=== PATIENT | male | born 1945 | race African-American/Black ===

== ENCOUNTER 2020-05-10 21:36 | Inpatient (IN) ==
[2020-05-10] MEDS ORDERED: NS 0.9% 1000 ml BAG 1,000 ML IV ONE (21:49)
[2020-05-10 22:10] LABS: ABS Basophils 0.1 10^3/ul (0-0.2); ABS Eosinophils 0.1 10^3/ul (0-0.6); ABS Lymphocytes 2.3 10^3/ul (1.0-4.8); ABS Monocytes 0.9 10^3/ul (0-0.8); ABS Neutrophils 5.4 10^3/ul (1.5-7.7); Eosinophil % 1.2 %; Hematocrit 39 % (42-52); Hemoglobin 13.2 g/dL (14.0-18.0); Lymphocyte % 25.8 %; Mean Corpuscular HGB Conc 34 g/dL (31-36); Mean Corpuscular Hemoglobin 29 pg (27-31); Mean Corpuscular Volume 86 fL (80-94); Mean Platelet Volume 7.3 fL (7.4-10.4); Platelet Count 286 10^3/uL (150-450); Red Blood Count 4.52 10^6 /uL (4.18-5.48); Red Cell Distribution Width 14 % (10-15); White Blood Count 8.7 10^3/uL (3.5-10.8)
[2020-05-10 22:18] LABS: Activated Partial Thrombo Time 27.4 seconds (26.0-38.0); INR 1.36 (0.82-1.09)
[2020-05-10 22:21] LABS: ALT 35 U/L (7-52); AST 19 U/L (13-39); Albumin 3.8 g/dL (3.2-5.2); Albumin/Globulin Ratio 0.9 (1-3); Alkaline Phosphatase 55 U/L (34-104); Anion Gap 9 mmol/L (2-11); BUN/Creatinine Ratio 12.9 (8-20); Blood Urea Nitrogen 8 mg/dL (6-24); CO2 Carbon Dioxide 25 mmol/L (22-32); Calcium 8.7 mg/dL (8.6-10.3); Chloride 100 mmol/L (101-111); Cholesterol 132 mg/dL; EGFR African American 153.9 (>60); EGFR Non-African American 127.2 (>60); Globulin 4.2 g/dL (2-4); Glucose 122 mg/dL (70-100); HDL Cholesterol 39.6 mg/dL; LDL Cholesterol 82 mg/dL; Potassium 3.7 mmol/L (3.5-5.0); Sodium 134 mmol/L (135-145); Triglycerides 53 mg/dL
[2020-05-10 22:24] LABS: Troponin I 0.08 ng/mL (<0.03)
[2020-05-10] MEDS ORDERED: Iodixanol (CONTRAST) 320 MG/ML 100 ML SDV IV ONE (22:29)
[2020-05-10 22:55] LABS: Urine Appearance Clear; Urine Bilirubin Negative (Negative); Urine Blood Negative (Negative); Urine Color Yellow; Urine Glucose Negative (Negative); Urine Ketones Negative (Negative); Urine Nitrite Negative (Negative); Urine Protein Negative (Negative); Urine Urobilinogen Negative (Negative)
[2020-05-11 01:23] LABS: Magnesium 1.9 mg/dL (1.9-2.7)
[2020-05-11 01:41] LABS: TSH Ultra Thyroid Stim Horm 0.63 mcIU/mL (0.34-5.60)
[2020-05-11 01:53] LABS: Folate > 20.00 ng/mL (>3.99)
[2020-05-11 01:54] LABS: Vitamin B12 > 1450 pg/mL (180-914)
[2020-05-11 01:56] LABS: Anion Gap 6 mmol/L (2-11); BUN/Creatinine Ratio 10.4 (8-20); Blood Urea Nitrogen 7 mg/dL (6-24); CO2 Carbon Dioxide 28 mmol/L (22-32); Calcium 8.7 mg/dL (8.6-10.3); Chloride 102 mmol/L (101-111); EGFR African American 140.7 (>60); EGFR Non-African American 116.3 (>60); Glucose 97 mg/dL (70-100); Potassium 3.9 mmol/L (3.5-5.0); Sodium 136 mmol/L (135-145)
[2020-05-11 02:05] LABS: Troponin I 0.07 ng/mL (<0.03)
[2020-05-11] MEDS: Enoxaparin 40 MG/0.4 ML SYR SUBCUT SCH (02:54)
[2020-05-11 05:55] LABS: Troponin I 0.09 ng/mL (<0.03)
[2020-05-11 08:42] LABS: Troponin I 0.08 ng/mL (<0.03)
[2020-05-12] MEDS: Enoxaparin 40 MG/0.4 ML SYR SUBCUT SCH (03:22)
[2020-05-12 06:49] LABS: ABS Basophils 0.1 10^3/ul (0-0.2); ABS Eosinophils 0.1 10^3/ul (0-0.6); ABS Monocytes 0.8 10^3/ul (0-0.8); ABS Neutrophils 4.7 10^3/ul (1.5-7.7); Eosinophil % 1.7 %; Hematocrit 35 % (42-52); Hemoglobin 12.1 g/dL (14.0-18.0); Lymphocyte % 25.5 %; Mean Corpuscular HGB Conc 35 g/dL (31-36); Mean Corpuscular Hemoglobin 30 pg (27-31); Mean Corpuscular Volume 86 fL (80-94); Mean Platelet Volume 7.2 fL (7.4-10.4); Platelet Count 268 10^3/uL (150-450); Red Blood Count 4.08 10^6 /uL (4.18-5.48); Red Cell Distribution Width 14 % (10-15); White Blood Count 7.7 10^3/uL (3.5-10.8)
[2020-05-12 06:56] LABS: INR 1.33 (0.82-1.09)
[2020-05-12 07:13] LABS: BUN/Creatinine Ratio 11.3 (8-20); Calcium 8.9 mg/dL (8.6-10.3); EGFR African American 153.9 (>60); EGFR Non-African American 127.2 (>60); Potassium 3.6 mmol/L (3.5-5.0)
[2020-05-12] MEDS ORDERED: Aspirin EC 81 mg TAB.EC (enteric coated) PO SCH (09:00)
[2020-05-12] MEDS ORDERED: Midazolam 5 mg/5 ml VIAL 1 mg/ml 5 ml VIAL (5 mg) ONE (09:07)
[2020-05-12] MEDS ORDERED: Naloxone 0.4 mg VIAL 0.4 mg/ml 1 ml VIAL ONE (09:07)
[2020-05-12] MEDS ORDERED: fentaNYL 100 mcg/2 ml 50 MCG/ML VIAL ONE (09:07)
[2020-05-12] MEDS ORDERED: Flumazenil 0.5 mg/5 ml 0.1 MG/ML 5 ml VIAL ONE (09:07)
[2020-05-12 14:32] VITALS: BP 107/56
== END 2020-05-12 15:41 | disposition home or self-care (01) | DRG 65 ==
LOC: MEDTELE 21:36 → ED 21:36 → MEDTELE 05-11 02:35
PROVIDERS: ADMIT Internal Medicine; ATTEND Hospitalist

== ENCOUNTER 2020-06-02 12:53 | Inpatient (IN) ==
[2020-06-02 13:29] LABS: Urine Appearance Turbid; Urine Bilirubin Negative (Negative); Urine Blood Negative (Negative); Urine Color Amber; Urine Glucose Negative (Negative); Urine Ketones Trace (Negative); Urine Nitrite Negative (Negative); Urine Protein 1+(30 mg/dL) (Negative); Urine Urobilinogen Negative (Negative)
[2020-06-02 13:59] LABS: Urine Bacteria Absent (Absent); Urine Red Blood Cell Absent (Absent); Urine White Blood Cell Absent (Absent)
[2020-06-02 14:09] LABS: ABS Basophils 0.1 10^3/ul (0-0.2); ABS Lymphocytes 1.4 10^3/ul (1.0-4.8); ABS Monocytes 1.1 10^3/ul (0-0.8); ABS Neutrophils 8.5 10^3/ul (1.5-7.7); Eosinophil % 0.4 %; Hematocrit 38 % (42-52); Hemoglobin 12.8 g/dL (14.0-18.0); Lymphocyte % 12.4 %; Mean Corpuscular HGB Conc 34 g/dL (31-36); Mean Corpuscular Hemoglobin 28 pg (27-31); Mean Corpuscular Volume 84 fL (80-94); Mean Platelet Volume 7.9 fL (7.4-10.4); Platelet Count 374 10^3/uL (150-450); Red Blood Count 4.52 10^6 /uL (4.18-5.48); Red Cell Distribution Width 14 % (10-15); White Blood Count 11.2 10^3/uL (3.5-10.8)
[2020-06-02 14:22] LABS: ALT 90 U/L (7-52); Albumin 3.5 g/dL (3.2-5.2); Albumin/Globulin Ratio 0.7 (1-3); Alkaline Phosphatase 66 U/L (34-104); Blood Urea Nitrogen 11 mg/dL (6-24); CO2 Carbon Dioxide 25 mmol/L (22-32); Calcium 9.3 mg/dL (8.6-10.3); Chloride 100 mmol/L (101-111); Creatine Kinase 127 U/L (10-223); EGFR African American 156.8 (>60); EGFR Non-African American 129.6 (>60); Globulin 4.7 g/dL (2-4); Glucose 104 mg/dL (70-100); Sodium 136 mmol/L (135-145); Total Protein 8.2 g/dL (6.4-8.9)
[2020-06-02 14:25] LABS: Anion Gap 11 mmol/L (2-11); Troponin I 0.49 ng/mL (<0.03)
[2020-06-02 14:45] LABS: Acetaminophen < 15 mcg/mL; Alcohol, S < 10 mg/dL (<10)
[2020-06-02 14:56] LABS: TSH Ultra Thyroid Stim Horm 1.36 mcIU/mL (0.34-5.60)
[2020-06-02] MEDS: NS 0.9% 1000 ml BAG 1,000 ML IV SCH ×2 (15:57→21:12)
[2020-06-02 16:25] LABS: INR 2.61 (0.82-1.09)
[2020-06-02] MEDS ORDERED: Ondansetron 4 mg VIAL 2 MG/ML 2 ml VIAL IV PRN (16:31)
[2020-06-02 16:44] LABS: Magnesium 1.8 mg/dL (1.9-2.7); Potassium Redraw 3.8 mmol/L (3.5-5.0)
[2020-06-03] MEDS: NS 0.9% 1000 ml BAG 1,000 ML IV SCH ×2 (05:24→18:09)
[2020-06-03] MEDS: Aspirin EC 81 mg TAB.EC (enteric coated) PO SCH (10:00)
[2020-06-03] MEDS: Warfarin DAILY REMINDER **NOTE FOLLOW UP SCH (18:09)
[2020-06-03] MEDS: Enoxaparin 60 MG/0.6 ML SYR SUBCUT SCH (20:25)
[2020-06-03 21:46] LABS: Troponin I 0.46 ng/mL (<0.03)
[2020-06-04] MEDS: NS 0.9% 1000 ml BAG 1,000 ML IV SCH ×2 (02:31→19:21)
[2020-06-04 06:20] LABS: INR 1.85 (0.82-1.09)
[2020-06-04 06:27] LABS: Troponin I 0.65 ng/mL (<0.03)
[2020-06-04] MEDS: Aspirin EC 81 mg TAB.EC (enteric coated) PO SCH (09:12)
[2020-06-04 09:59] LABS: Corrected Retic Count 1.2 % (0.5-1.5); Hematocrit for Retic CNT 32 % (42-52); Immature Retic Fraction 0.54; RBC Retic Count 3.78 10^6/uL (4.18-5.48)
[2020-06-04 10:09] LABS: Activated Partial Thrombo Time 24.6 seconds (26.0-38.0); Fibrinogen 288.7 mg/dL (110.8-404.3); INR 1.73 (0.82-1.09)
[2020-06-04 10:10] LABS: Indirect Bilirubin 0.3 mg/dL (0.3-1.0)
[2020-06-04 10:20] LABS: Troponin I 0.62 ng/mL (<0.03)
[2020-06-04 10:34] LABS: LDH 476 U/L (140-271)
[2020-06-04 12:20] LABS: Anion Gap 16 mmol/L (2-11); CO2 Carbon Dioxide 16 mmol/L (22-32); Calcium 8.3 mg/dL (8.6-10.3); Chloride 107 mmol/L (101-111); Potassium 3.9 mmol/L (3.5-5.0); Sodium 139 mmol/L (135-145)
[2020-06-04 12:25] LABS: Blood Urea Nitrogen 9 mg/dL (6-24); Glucose 120 mg/dL (70-100)
[2020-06-04 12:26] LABS: BUN/Creatinine Ratio 15.8 (8-20); EGFR African American 169.5 (>60); EGFR Non-African American 140.1 (>60)
[2020-06-04] MEDS: Enoxaparin 60 MG/0.6 ML SYR SUBCUT SCH ×2 (12:54→22:10)
[2020-06-04 13:08] LABS: Troponin I 0.47 ng/mL (<0.03)
[2020-06-04 13:29] LABS: ABS Basophils 0.1 10^3/ul (0-0.2); ABS Eosinophils 0.1 10^3/ul (0-0.6); ABS Lymphocytes 1.4 10^3/ul (1.0-4.8); ABS Monocytes 1.2 10^3/ul (0-0.8); Eosinophil % 0.4 %; Hematocrit 32 % (42-52); Hemoglobin 10.6 g/dL (14.0-18.0); Lymphocyte % 9.9 %; Mean Corpuscular HGB Conc 33 g/dL (31-36); Mean Corpuscular Hemoglobin 28 pg (27-31); Mean Corpuscular Volume 84 fL (80-94); Mean Platelet Volume 7.9 fL (7.4-10.4); Nucleated Red Blood Cells % 0.1; Platelet Count 286 10^3/uL (150-450); Red Cell Distribution Width 14 % (10-15); White Blood Count 13.7 10^3/uL (3.5-10.8)
[2020-06-04] MEDS: Warfarin DAILY REMINDER **NOTE FOLLOW UP SCH (18:17)
[2020-06-04 19:07] LABS: Phospholipid Ab IgG < 9.4 GPL; Phospholipid Ab IgM, S < 9.4 MPL
[2020-06-05] MEDS: NS 0.9% 1000 ml BAG 1,000 ML IV SCH ×2 (05:17→16:30)
[2020-06-05 07:52] LABS: INR 1.93 (0.82-1.09)
[2020-06-05] MEDS: Enoxaparin 60 MG/0.6 ML SYR SUBCUT SCH ×2 (08:42→21:00)
[2020-06-05] MEDS: Aspirin EC 81 mg TAB.EC (enteric coated) PO SCH (08:42)
[2020-06-05 10:55] LABS: PNH RBC Partial Antigen Loss 0.07 % (0.00-0.99)
[2020-06-05 12:30] LABS: ABS Basophils 0.1 10^3/ul (0-0.2); ABS Eosinophils 0.1 10^3/ul (0-0.6); ABS Lymphocytes 1.3 10^3/ul (1.0-4.8); ABS Monocytes 1.1 10^3/ul (0-0.8); ABS Neutrophils 10.6 10^3/ul (1.5-7.7); Eosinophil % 0.6 %; Hematocrit 34 % (42-52); Hemoglobin 10.9 g/dL (14.0-18.0); Lymphocyte % 9.9 %; Mean Corpuscular HGB Conc 33 g/dL (31-36); Mean Corpuscular Hemoglobin 28 pg (27-31); Mean Corpuscular Volume 85 fL (80-94); Mean Platelet Volume 7.7 fL (7.4-10.4); Platelet Count 314 10^3/uL (150-450); Red Blood Count 3.96 10^6 /uL (4.18-5.48); Red Cell Distribution Width 14 % (10-15); White Blood Count 13.2 10^3/uL (3.5-10.8)
[2020-06-05 12:51] LABS: BUN/Creatinine Ratio 16.1 (8-20); Calcium 8.4 mg/dL (8.6-10.3); EGFR African American 153.9 (>60); EGFR Non-African American 127.2 (>60)
[2020-06-05 14:08] LABS: Potassium 3.5 mmol/L (3.5-5.0)
[2020-06-05] MEDS: Warfarin DAILY REMINDER **NOTE FOLLOW UP SCH (18:31)
[2020-06-06] MEDS: NS 0.9% 1000 ml BAG 1,000 ML IV SCH (02:08)
[2020-06-06 06:12] LABS: INR 2.28 (0.82-1.09)
[2020-06-06] MEDS: Enoxaparin 60 MG/0.6 ML SYR SUBCUT SCH (08:15)
[2020-06-06] MEDS: Aspirin EC 81 mg TAB.EC (enteric coated) PO SCH (08:15)
[2020-06-06] MEDS: Senna TAB 8.6 mg TAB PO PRN ×2 (08:53→19:37)
[2020-06-06] MEDS: Warfarin DAILY REMINDER **NOTE FOLLOW UP SCH (17:35)
[2020-06-07 07:18] LABS: INR 2.99 (0.82-1.09)
[2020-06-07] MEDS: Aspirin EC 81 mg TAB.EC (enteric coated) PO SCH (09:53)
[2020-06-07] MEDS: Senna TAB 8.6 mg TAB PO PRN (13:58)
[2020-06-07 15:10] LABS: Albumin 2.4 g/dL (3.4-4.7); Albumin/Globulin Ratio 0.52; Gamma Globulin 1.7 g/dL (0.6-1.6); Total Protein(PEP) 7.1 g/dL (6.3 - 7.9)
[2020-06-07] MEDS: Polyethylene Glycol 3350 17 GM PACKET PO PRN (17:15)
[2020-06-07] MEDS: Warfarin DAILY REMINDER **NOTE FOLLOW UP SCH (17:34)
[2020-06-07 20:58] LABS: ABS Basophils 0.1 10^3/ul (0-0.2); ABS Lymphocytes 1.4 10^3/ul (1.0-4.8); ABS Monocytes 1.3 10^3/ul (0-0.8); Eosinophil % 0.2 %; Hematocrit 34 % (42-52); Hemoglobin 11.3 g/dL (14.0-18.0); Lymphocyte % 9.2 %; Mean Corpuscular HGB Conc 33 g/dL (31-36); Mean Corpuscular Hemoglobin 28 pg (27-31); Mean Corpuscular Volume 83 fL (80-94); Mean Platelet Volume 7.8 fL (7.4-10.4); Platelet Count 241 10^3/uL (150-450); Red Blood Count 4.12 10^6 /uL (4.18-5.48); Red Cell Distribution Width 14 % (10-15); White Blood Count 14.7 10^3/uL (3.5-10.8)
[2020-06-07] MEDS ORDERED: cefTRIAXone 1 gm/50 mL NS BAG 1 GM/50 ML BAG IVPB SCH (21:00)
[2020-06-07 21:19] LABS: Albumin/Globulin Ratio 0.7 (1-3); BUN/Creatinine Ratio 17.6 (8-20); Calcium 8.7 mg/dL (8.6-10.3); EGFR African American 106.9 (>60); EGFR Non-African American 88.4 (>60); Globulin 4.2 g/dL (2-4); Potassium 3.1 mmol/L (3.5-5.0); Total Bilirubin 0.8 mg/dL (0.2-1.0); Total Protein 7.2 g/dL (6.4-8.9)
[2020-06-07] MEDS: Senna TAB 8.6 mg TAB PO SCH (22:05)
[2020-06-07 22:18] LABS: Urine Appearance Cloudy; Urine Bilirubin Negative (Negative); Urine Blood 2+ (Negative); Urine Color Yellow; Urine Glucose 1+(50 mg/dL) (Negative); Urine Ketones Trace (Negative); Urine Nitrite Negative (Negative); Urine Protein 2+(100 mg/dL) (Negative); Urine Specific Gravity 1.011 (1.010-1.030); Urine Urobilinogen Negative (Negative)
[2020-06-07 22:22] LABS: Urine Bacteria Absent (Absent); Urine Red Blood Cell 3+(>10/hpf) (Absent); Urine White Blood Cell 1+(6-10/hpf) (Absent)
[2020-06-07 22:28] LABS: Beta 2 Glycoprotein IgG <9.4 U/mL
[2020-06-07] MEDS ORDERED: KCL 20 MEQ/100 ML IVPREMIX 20 MEQ/100 ML BAG IV ONE (22:40)
[2020-06-07] MEDS ORDERED: Potassium Chlor 20 meq TAB.ER PO ONE (22:41)
[2020-06-07] MEDS ORDERED: NS 0.9% IV SCH (22:45)
[2020-06-07 23:32] LABS: C Reactive Protein 172.02 mg/L (<8.01)
[2020-06-07] MEDS: Cefepime 2 GM in Dextrose 2 GM/50 ML BAG IV SCH (23:42)
[2020-06-07 23:56] LABS: Influenza A Molecular Negative (Negative); Influenza B Molecular Negative (Negative)
[2020-06-08] MEDS: Polyethylene Glycol 3350 17 GM PACKET PO PRN (06:11)
[2020-06-08 06:12] LABS: Hematocrit 31 % (42-52); Hemoglobin 10.4 g/dL (14.0-18.0); Mean Corpuscular HGB Conc 34 g/dL (31-36); Mean Corpuscular Hemoglobin 28 pg (27-31); Mean Corpuscular Volume 83 fL (80-94); Mean Platelet Volume 7.6 fL (7.4-10.4); Platelet Count 190 10^3/uL (150-450); Red Blood Count 3.74 10^6 /uL (4.18-5.48); Red Cell Distribution Width 14 % (10-15); White Blood Count 14.1 10^3/uL (3.5-10.8)
[2020-06-08 06:20] LABS: INR 4.48 (0.82-1.09)
[2020-06-08 06:21] LABS: ABS Basophils 0.1 10^3/ul (0-0.2); ABS Lymphocytes 1.3 10^3/ul (1.0-4.8); ABS Monocytes 1.6 10^3/ul (0-0.8); ABS Neutrophils 11.2 10^3/ul (1.5-7.7); Eosinophil % 0.3 %; Lymphocyte % 9.1 %; Nucleated Red Blood Cells % 0.1
[2020-06-08 06:45] LABS: BUN/Creatinine Ratio 16.8 (8-20); Calcium 8.2 mg/dL (8.6-10.3); EGFR Non-African American 77.7 (>60); Magnesium 1.6 mg/dL (1.9-2.7); Potassium 3.7 mmol/L (3.5-5.0)
[2020-06-08] MEDS: Aspirin EC 81 mg TAB.EC (enteric coated) PO SCH (07:41)
[2020-06-08] MEDS ORDERED: Magnesium Sulfate 2 gm BAG 2 GM/50 ML BAG IVPB ONE (08:00)
[2020-06-08 12:11] LABS: DRVVT Screen Ratio 1.13 ratio (<1.20); LAC APTT 26 sec (25 - 37); LAC INR 1.7 (0.9-1.1); Prothrombin Time(LAC) 19.3 sec (9.4 - 12.5); Thrombin Time (Bovine), P 21.6 sec
[2020-06-08] MEDS: Cefepime 2 GM in Dextrose 2 GM/50 ML BAG IV SCH ×2 (12:12→22:33)
[2020-06-08] MEDS: Senna TAB 8.6 mg TAB PO SCH (21:49)
[2020-06-09 06:26] LABS: ABS Monocytes 0.9 10^3/ul (0-0.8); Hematocrit 33 % (42-52); Hemoglobin 11.2 g/dL (14.0-18.0); Lymphocyte % 6.1 %; Mean Corpuscular HGB Conc 34 g/dL (31-36); Mean Corpuscular Hemoglobin 28 pg (27-31); Mean Corpuscular Volume 82 fL (80-94); Mean Platelet Volume 8.2 fL (7.4-10.4); Platelet Count 181 10^3/uL (150-450); Red Blood Count 4.07 10^6 /uL (4.18-5.48); Red Cell Distribution Width 15 % (10-15); White Blood Count 15.9 10^3/uL (3.5-10.8)
[2020-06-09 06:38] LABS: INR 3.81 (0.82-1.09)
[2020-06-09 06:59] LABS: BUN/Creatinine Ratio 18.3 (8-20); Calcium 8.6 mg/dL (8.6-10.3); EGFR African American 131.6 (>60); EGFR Non-African American 108.8 (>60); Magnesium 1.4 mg/dL (1.9-2.7); Potassium 3.6 mmol/L (3.5-5.0)
[2020-06-09] MEDS ORDERED: Magnesium Sulfate IV 3 GM in NS 0.9% 100 ml BAG 100 ML IVPB ONE (07:17)
[2020-06-09] MEDS: Aspirin EC 81 mg TAB.EC (enteric coated) PO SCH (08:11)
[2020-06-09] MEDS: Cefepime 2 GM in Dextrose 2 GM/50 ML BAG IV SCH ×2 (10:43→23:16)
[2020-06-09] MEDS ORDERED: Potassium Chlor 20 meq TAB.ER PO ONE (12:12)
[2020-06-09] MEDS: Polyethylene Glycol 3350 17 GM PACKET PO SCH (21:07)
[2020-06-09] MEDS: Senna TAB 8.6 mg TAB PO SCH (21:08)
[2020-06-10 08:40] LABS: Hematocrit 32 % (42-52); Hemoglobin 10.8 g/dL (14.0-18.0); Mean Corpuscular HGB Conc 34 g/dL (31-36); Mean Corpuscular Hemoglobin 28 pg (27-31); Mean Corpuscular Volume 82 fL (80-94); Platelet Count 187 10^3/uL (150-450); Red Blood Count 3.89 10^6 /uL (4.18-5.48); Red Cell Distribution Width 14 % (10-15); White Blood Count 16.7 10^3/uL (3.5-10.8)
[2020-06-10 10:03] LABS: BUN/Creatinine Ratio 22.2 (8-20); C Reactive Protein 110.16 mg/L (<8.01); Calcium 8.8 mg/dL (8.6-10.3); EGFR African American 129.5 (>60); Potassium 3.9 mmol/L (3.5-5.0)
[2020-06-10] MEDS: Aspirin EC 81 mg TAB.EC (enteric coated) PO SCH (10:12)
[2020-06-10] MEDS: Polyethylene Glycol 3350 17 GM PACKET PO SCH ×2 (10:15→21:12)
[2020-06-10 10:26] LABS: ABS Basophils 0.1 10^3/ul (0-0.2); ABS Lymphocytes 1.3 10^3/ul (1.0-4.8); ABS Monocytes 1.6 10^3/ul (0-0.8); ABS Neutrophils 13.7 10^3/ul (1.5-7.7); Eosinophil % 0.2 %; Lymphocyte % 8.1 %
[2020-06-10] MEDS: Cefepime 2 GM in Dextrose 2 GM/50 ML BAG IV SCH ×2 (11:30→23:42)
[2020-06-10] MEDS: Senna TAB 8.6 mg TAB PO SCH (21:09)
[2020-06-11 06:29] LABS: INR 2.55 (0.82-1.09)
[2020-06-11] MEDS: Aspirin EC 81 mg TAB.EC (enteric coated) PO SCH (07:51)
[2020-06-11] MEDS: Polyethylene Glycol 3350 17 GM PACKET PO SCH ×2 (07:51→21:47)
[2020-06-11] MEDS: Cefepime 2 GM in Dextrose 2 GM/50 ML BAG IV SCH ×2 (10:56→21:47)
[2020-06-11] MEDS: Warfarin DAILY REMINDER **NOTE FOLLOW UP SCH (16:17)
[2020-06-11] MEDS: Senna TAB 8.6 mg TAB PO SCH (21:47)
[2020-06-12 08:09] LABS: INR 2.58 (0.82-1.09)
[2020-06-12] MEDS: Aspirin EC 81 mg TAB.EC (enteric coated) PO SCH (10:05)
[2020-06-12] MEDS: Polyethylene Glycol 3350 17 GM PACKET PO SCH ×2 (10:05→21:02)
[2020-06-12] MEDS: Cefepime 2 GM in Dextrose 2 GM/50 ML BAG IV SCH (11:12)
[2020-06-12] MEDS: Warfarin DAILY REMINDER **NOTE FOLLOW UP SCH (17:06)
[2020-06-12] MEDS: Senna TAB 8.6 mg TAB PO SCH (21:02)
[2020-06-12] MEDS: Cefepime 2 GM in NS 0.9% 50 ML 50 ML IVPB SCH (22:50)
[2020-06-13 06:56] LABS: Hematocrit 30 % (42-52); Hemoglobin 10.5 g/dL (14.0-18.0); Mean Corpuscular HGB Conc 34 g/dL (31-36); Mean Corpuscular Hemoglobin 28 pg (27-31); Mean Corpuscular Volume 83 fL (80-94); Platelet Count 168 10^3/uL (150-450); Red Blood Count 3.68 10^6 /uL (4.18-5.48); Red Cell Distribution Width 14 % (10-15); White Blood Count 17.9 10^3/uL (3.5-10.8)
[2020-06-13 07:08] LABS: Albumin 2.9 g/dL (3.2-5.2); Albumin/Globulin Ratio 0.7 (1-3); Calcium 8.4 mg/dL (8.6-10.3); EGFR African American 153.9 (>60); EGFR Non-African American 127.2 (>60); Globulin 4.4 g/dL (2-4); Potassium 3.5 mmol/L (3.5-5.0); Total Bilirubin 0.7 mg/dL (0.2-1.0); Total Protein 7.3 g/dL (6.4-8.9)
[2020-06-13 07:21] LABS: ABS Lymphocytes 1.5 10^3/ul (1.0-4.8); ABS Monocytes 1.9 10^3/ul (0-0.8); ABS Neutrophils 14.4 10^3/ul (1.5-7.7); Eosinophil % 0.2 %; Lymphocyte % 8.5 %
[2020-06-13] MEDS: Polyethylene Glycol 3350 17 GM PACKET PO SCH ×2 (09:15→20:45)
[2020-06-13] MEDS: Aspirin EC 81 mg TAB.EC (enteric coated) PO SCH (09:15)
[2020-06-13] MEDS: Cefepime 2 GM in NS 0.9% 50 ML 50 ML IVPB SCH ×2 (10:36→22:57)
[2020-06-13 12:05] LABS: Hepatitis B Surface Antigen Nonreactive (Nonreactive)
[2020-06-13 12:10] LABS: Hepatitis A Ab IgM Negative (Negative)
[2020-06-13 12:11] LABS: Hepatitis B Core IgM Nonreactive (Nonreactive)
[2020-06-13 12:23] LABS: Hepatitis C Antibody Negative (Negative)
[2020-06-13] MEDS ORDERED: Iodixanol (CONTRAST) 320 MG/ML 100 ML SDV IV ONE (14:19)
[2020-06-13] MEDS: Warfarin DAILY REMINDER **NOTE FOLLOW UP SCH (16:25)
[2020-06-13] MEDS: Senna TAB 8.6 mg TAB PO SCH (20:45)
[2020-06-14 06:42] LABS: Hematocrit 30 % (42-52); Mean Corpuscular HGB Conc 33 g/dL (31-36); Mean Corpuscular Hemoglobin 28 pg (27-31); Mean Corpuscular Volume 83 fL (80-94); Mean Platelet Volume 8.6 fL (7.4-10.4); Platelet Count 176 10^3/uL (150-450); Red Blood Count 3.61 10^6 /uL (4.18-5.48); Red Cell Distribution Width 14 % (10-15); White Blood Count 19.8 10^3/uL (3.5-10.8)
[2020-06-14 06:52] LABS: ABS Basophils 0.1 10^3/ul (0-0.2); ABS Eosinophils 0.1 10^3/ul (0-0.6); ABS Lymphocytes 1.4 10^3/ul (1.0-4.8); ABS Neutrophils 16.3 10^3/ul (1.5-7.7); Eosinophil % 0.5 %
[2020-06-14 07:00] LABS: INR 2.37 (0.82-1.09)
[2020-06-14 07:05] LABS: Albumin 2.8 g/dL (3.2-5.2); Albumin/Globulin Ratio 0.6 (1-3); BUN/Creatinine Ratio 23.4 (8-20); Calcium 8.3 mg/dL (8.6-10.3); EGFR African American 148.3 (>60); EGFR Non-African American 122.6 (>60); Globulin 4.5 g/dL (2-4); Potassium 3.4 mmol/L (3.5-5.0); Total Bilirubin 0.7 mg/dL (0.2-1.0); Total Protein 7.3 g/dL (6.4-8.9)
[2020-06-14] MEDS ORDERED: Iodixanol (CONTRAST) 320 MG/ML 100 ML SDV IV ONE (07:49)
[2020-06-14] MEDS: Polyethylene Glycol 3350 17 GM PACKET PO SCH ×2 (09:42→20:52)
[2020-06-14] MEDS: Aspirin EC 81 mg TAB.EC (enteric coated) PO SCH (09:43)
[2020-06-14] MEDS: Cefepime 2 GM in NS 0.9% 50 ML 50 ML IVPB SCH (10:52)
[2020-06-14] MEDS ORDERED: Potassium Chlor 20 meq TAB.ER PO ONE (10:59)
[2020-06-14] MEDS ORDERED: Senna TAB 8.6 mg TAB PO PRN (12:36)
[2020-06-14] MEDS: Warfarin DAILY REMINDER **NOTE FOLLOW UP SCH (17:23)
[2020-06-15 06:31] LABS: Hematocrit 31 % (42-52); Hemoglobin 10.1 g/dL (14.0-18.0); Mean Corpuscular HGB Conc 33 g/dL (31-36); Mean Corpuscular Hemoglobin 27 pg (27-31); Mean Corpuscular Volume 83 fL (80-94); Mean Platelet Volume 8.4 fL (7.4-10.4); Platelet Count 201 10^3/uL (150-450); Red Blood Count 3.69 10^6 /uL (4.18-5.48); Red Cell Distribution Width 14 % (10-15); White Blood Count 18.9 10^3/uL (3.5-10.8)
[2020-06-15 06:41] LABS: ABS Basophils 0.1 10^3/ul (0-0.2); ABS Lymphocytes 1.2 10^3/ul (1.0-4.8); ABS Monocytes 1.7 10^3/ul (0-0.8); ABS Neutrophils 15.8 10^3/ul (1.5-7.7); Eosinophil % 0.1 %; Lymphocyte % 6.4 %
[2020-06-15 06:42] LABS: INR 2.12 (0.82-1.09)
[2020-06-15 06:48] LABS: Albumin 2.8 g/dL (3.2-5.2); Albumin/Globulin Ratio 0.6 (1-3); BUN/Creatinine Ratio 21.8 (8-20); C Reactive Protein 156.08 mg/L (<8.01); Calcium 8.3 mg/dL (8.6-10.3); EGFR African American 176.7 (>60); Globulin 4.4 g/dL (2-4); Potassium 3.7 mmol/L (3.5-5.0); Total Bilirubin 0.7 mg/dL (0.2-1.0); Total Protein 7.2 g/dL (6.4-8.9)
[2020-06-15] MEDS: Polyethylene Glycol 3350 17 GM PACKET PO SCH ×2 (08:29→20:43)
[2020-06-15] MEDS: Aspirin EC 81 mg TAB.EC (enteric coated) PO SCH (08:30)
[2020-06-15] MEDS ORDERED: fentaNYL 100 mcg/2 ml 50 MCG/ML VIAL ONE (14:21)
[2020-06-15] MEDS ORDERED: Warfarin per PHARMACY **NOTE FOLLOW UP SCH (16:00)
[2020-06-15] MEDS: Warfarin DAILY REMINDER **NOTE FOLLOW UP SCH (17:22)
[2020-06-16] MEDS: Polyethylene Glycol 3350 17 GM PACKET PO SCH ×2 (09:12→21:43)
[2020-06-16] MEDS: Aspirin EC 81 mg TAB.EC (enteric coated) PO SCH (09:13)
[2020-06-16 09:48] LABS: INR 2.6 (0.82-1.09)
[2020-06-16 09:59] LABS: Albumin 3.1 g/dL (3.2-5.2); Albumin/Globulin Ratio 0.7 (1-3); BUN/Creatinine Ratio 21.9 (8-20); Calcium 8.7 mg/dL (8.6-10.3); EGFR African American 148.3 (>60); EGFR Non-African American 122.6 (>60); Globulin 4.7 g/dL (2-4); Total Bilirubin 0.8 mg/dL (0.2-1.0); Total Protein 7.8 g/dL (6.4-8.9)
[2020-06-16 14:31] LABS: Albumin 2.4 g/dL (3.4-4.7); Albumin/Globulin Ratio 0.47; Gamma Globulin 2.1 g/dL (0.6-1.6); Total Protein(PEP) 7.6 g/dL (6.3 - 7.9)
[2020-06-16] MEDS: Warfarin DAILY REMINDER **NOTE FOLLOW UP SCH (16:15)
[2020-06-17 06:13] LABS: INR 2.61 (0.82-1.09)
[2020-06-17] MEDS: Aspirin EC 81 mg TAB.EC (enteric coated) PO SCH (07:57)
[2020-06-17] MEDS: Polyethylene Glycol 3350 17 GM PACKET PO SCH ×2 (07:58→21:12)
[2020-06-17 14:43] LABS: Albumin 2.2 g/dL (3.4-4.7); Albumin/Globulin Ratio 0.43; Total Protein(PEP) 7.2 g/dL (6.3 - 7.9)
[2020-06-18 06:50] LABS: INR 2.57 (0.82-1.09)
[2020-06-18] MEDS: Aspirin EC 81 mg TAB.EC (enteric coated) PO SCH (08:43)
[2020-06-18] MEDS: Polyethylene Glycol 3350 17 GM PACKET PO SCH ×2 (08:48→20:19)
[2020-06-19] MEDS: Aspirin EC 81 mg TAB.EC (enteric coated) PO SCH (09:48)
[2020-06-19] MEDS: Polyethylene Glycol 3350 17 GM PACKET PO SCH (09:52)
[2020-06-19 12:52] VITALS: BP 110/60
[2020-06-19] MEDS ORDERED: Morphine 2 MG/ML SYRINGE IV ONE (14:52)
[2020-07-05 18:39] LABS: LNGPR Tissue ID CN20-1331
== END 2020-06-19 16:00 | disposition home or self-care (01) | DRG 64 ==
LOC: ED 12:53 → MEDTELE 12:53 → OBSVTOIN 16:08 → MEDTELE 06-15 16:51
PROVIDERS: ADMIT Student in an Organized Health Care Education/Training Program; ATTEND Student in an Organized Health Care Education/Training Program